=== PATIENT | male | born 1975 | race American Indian/Alaskan Native ===

== ENCOUNTER 2017-08-27 06:42 | Day surgery (SDC) | payer MEDICAID, OTHER ==
[2017-08-27] MEDS ORDERED: Sodium Chloride 0.9% 10 ML Syringe FLUSH PRN (06:45)
[2017-08-27] MEDS ORDERED: Lactated Ringers 1,000 ML IV SCH (06:45)
[2017-08-27 07:27] VITALS: BP 141/97
--- NOTE | 2017-08-27 09:15 | PCM.SN ---
- Free Text/Narrative Note: Due to airway concerns and his past medical hx anesthesia recommends that the case be done in [place]. Referral was made.
== END 2017-08-27 08:08 | disposition home or self-care (01) ==
LOC: FB.SDS 06:42
PROVIDERS: ATTEND Surgery
DX: K42.9 Umbilical hernia without obstruction or gangrene (principal); Z53.8 Procedure and treatment not carried out for other reasons; G47.33 Obstructive sleep apnea (adult) (pediatric); E66.01 Morbid (severe) obesity due to excess calories; Z68.41 Body mass index [BMI] 40.0-44.9, adult; Z88.0 Allergy status to penicillin; Z88.5 Allergy status to narcotic agent

== ENCOUNTER 2017-11-26 04:46 | Emergency (ER) | payer MEDICAID, OTHER ==
[2017-11-26] MEDS ORDERED: levETIRAcetam 500 MG in Sodium Chloride 0.9% 100 ML IV ONE (05:08)
[2017-11-26] MEDS ORDERED: LORazepam 2 MG/ML SDV IVPUSH ONE (05:08)
[2017-11-26] MEDS ORDERED: Insulin Regular, Human 100 Units/ML 3 ML Vial IV ONE ×2 (05:09→07:46)
--- NOTE | 2017-11-26 05:19 | EDM.PDOC ---
ED HPI GENERAL MEDICAL PROBLEM - General Chief Complaint: Neuro Symptoms/Deficits Stated Complaint: PRAVEENA BLOODSUGAR Time Seen by Provider: 11/26/17 05:02 Source of Information: Reports: EMS, Family History Limitations: Reports: Altered Mental Status - History of Present Illness INITIAL COMMENTS - FREE TEXT/NARRATIVE: Per girlfriend, patient had a @2-3 min tonic clonic seizure during intercourse at 0400, then another @1 min seizure at 0430. No prior h/o seizure disorder. She also states that he has been smoking methamphetamine the last few days. He apparently fell 2 nights ago, no loss of consciousness. Per EMS blood sugar @600 , no h/o diabetes. Per girlfriend, he has had polydipsia and polyuria for @1 month. Upon my arrival to the ED, patient is actively seizing. Ativan 1mg IV given. Seizure resolved, lasted @1.5 min - Related Data Allergies Allergy/AdvReac Type Severity Reaction Status Date / Time codeine Allergy Hives Verified 11/26/17 05:41 Penicillins Allergy Hives Verified 11/26/17 05:41 Home Meds: Home Meds . 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 Hematologic History: Reports: None Oncologic (Cancer) History: Reports: None Dermatologic History: Reports: None - Infectious Disease History Infectious Disease History: Reports: Other (See Below) (Epiglottitis 04/2016) - Past Surgical History Head Surgeries/Procedures: Reports: None Respiratory Surgical History: Reports: Tracheostomy GI Surgical History: Reports: Cholecystectomy, Other (See Below) Other GI Surgeries/Procedures: FISSURECTOMY WWO SPHINCTEROTOMY. PEG TUBE INSERTION Social & Family History - Family History Family Medical History: Noncontributory - Tobacco Use Smoking Status *Q: Never Smoker - Caffeine Use Caffeine Use: Reports: Coffee, Energy Drinks, Soda - Alcohol Use Alcohol Use History: No - Recreational Drug Use Recreational Drug Type: Reports: Amphetamines (Speed) ED ROS GENERAL - Review of Systems Review Of Systems: Unable To Obtain (due to ALOC) - Physical Exam Exam: See Below Exam Limited By: Altered Mental Status General Appearance: Other (Initially seizing, now post ictal) Eye Exam: Bilateral Eye: PERRL Ears: Normal External Exam Throat/Mouth: No Airway Compromise Head Exam: Atraumatic, Normocephalic Neck: Normal Inspection Respiratory/Chest: No Respiratory Distress, Lungs Clear, Normal Breath Sounds Cardiovascular: Regular Rate, Rhythm, No Murmur GI/Abdominal: Non-Tender, No Distention Neuro Exam (Abbreviated): No Motor/Sensory Deficits, Other (Obtunded with a GCS 3, rapidly improved to GCS 14) Extremities: Normal Range of Motion Skin Exam: Warm, Dry, Intact, Petechiae (upper chest) EKG INTERPRETATION EKG Date: 11/26/17 Time: 05:45 Rhythm: Other (junctional tachycardia) Rate (Beats/Min): 117 [place]: Normal P-Wave: Absent QRS: Other (Nonspecific intraventricular delay) ST-T: Other (minimal ST dep lateral leads) QT: Prolonged Course - Vital Signs Last Recorded V/S: Last Vital Signs Temp 36.8 C 11/26/17 06:30 Pulse 113 H 11/26/17 04:46 Resp 22 H 11/26/17 07:00 BP 141/89 H 11/26/17 07:00 Pulse Ox 100 11/26/17 06:15 - Orders/Labs/Meds Orders: Active Orders 24 hr Category Date Time Status Accu Check [Blood Glucose Check, Bedside] [RC] Q1HR Care 11/26/17 05:38 Active Hsieh Catheter Insertion [Insert Urinary Catheter] [OM. Care 11/26/17 05:15 Ordered PC] Q24H Urinary Catheter Assessment [RC] QSHIFT Care 11/26/17 05:11 Active C-Spine [Cervical Spine wo Cont] [CT] Stat Exams 11/26/17 05:07 Taken CXR [Chest 1V Frontal] [CR] Stat Exams 11/26/17 05:09 Taken Head wo Cont [CT] Stat Exams 11/26/17 05:07 Taken CULTURE BLOOD [BC] Urgent Lab 11/26/17 06:50 Received CULTURE BLOOD [BC] Urgent Lab 11/26/17 07:00 Received Sodium Chloride 0.9% [Normal Saline] 1,000 ml Med 11/26/17 06:00 Active IV .BOLUS Sodium Chloride 0.9% [Saline Flush] Med 11/26/17 08:21 Active 10 ml FLUSH ASDIRECTED PRN Blood Culture x2 Reflex Set [OM.PC] Urgent Oth 11/26/17 05:06 Ordered EKG 12 Lead [EK] Stat Ther 11/26/17 05:05 Ordered Medication Orders Sodium Chloride (Normal Saline) 1,000 mls @ 999 mls/hr IV .BOLUS SUIS Last Admin: 11/26/17 08:15 Dose: 999 mls/hr Sodium Chloride (Saline Flush) 10 ml FLUSH ASDIRECTED PRN PRN Reason: Keep Vein Open Last Admin: 11/26/17 08:22 Dose: 10 ml Labs: Laboratory Tests 11/26/17 11/26/17 11/26/17 Range/Units 04:50 05:15 05:15 WBC 6.7 (4.5-12.0) X10-3/uL RBC 4.11 L (4.30-5.75) x10(6)uL Hgb 12.7 (11.5-15.5) g/dL Hct 38.0 (30.0-51.3) % MCV 92.4 (80-96) fL MCH 30.9 (27.7-33.6) pg MCHC 33.5 (32.2-35.4) g/dL RDW 13.6 (11.5-15.5) % Plt Count 230 (125-369) X10(3)uL MPV 9.3 (7.4-10.4) fL Neut % (Auto) 51.3 (46-82) % Lymph % (Auto) 34.5 (13-37) % [place] % (Auto) 8.8 (4-12) % Eos % (Auto) 4 (1.0-5.0) % Baso % (Auto) 2 (0-2) % Neut # (Auto) 3.4 (1.6-8.3) # Lymph # (Auto) 2.3 (0.6-5.0) # [place] # (Auto) 0.6 (0.0-1.3) # Eos # (Auto) 0.3 (0.0-0.8) # Baso # (Auto) 0.1 (0.0-0.2) # PT 9.9 (8.7-11.1) INR 1.02 (0.89-1.13) ABG pH (7.35-7.45) ABG pCO2 (35-45) mmHg ABG pO2 (83-108) mmHg ABG HCO3 (22-26) mmol/L ABG O2 Saturation (96-97) % ABG Base Excess (-2-2) [place] Test POC VBG pH (7.31-7.41) POC VBG pCO2 (41-51) mmHG POC VBG HCO3 (23-28) mmol/L POC VBG Total CO2 (24-29) mmol/L POC VBG Base Excess (-2-3) mmol/L O2 Delivery Device Sodium (135-145) mmol/L Potassium (3.5-5.3) mmol/L Chloride (100-110) mmol/L Carbon Dioxide (21-32) mmol/L BUN (7-18) mg/dL Creatinine (0.70-1.30) mg/dL Est Cr Clr Drug Dosing Estimated GFR (MDRD) (>60) BUN/Creatinine Ratio (9-20) Glucose (80-116) mg/dL POC Glucose > 500 H* (80-116) mg/dL Lactic Acid (0.4-2.2) mmol/L Calcium (8.6-10.2) mg/dL Magnesium (1.8-2.5) mg/dL Total Bilirubin (0.1-1.3) mg/dL AST (5-25) IU/L ALT (12-36) U/L Alkaline Phosphatase (56-112) IU/L Troponin I (<0.017-0.056) ng/mL Total Protein (6.0-8.0) g/dL Albumin (3.5-5.2) g/dL Globulin g/dL Albumin/Globulin Ratio Urine Color (YELLOW) Urine Appearance (CLEAR) Urine pH (5.0-6.5) Ur Specific [place] (1.010-1.025) Urine Protein (NEGATIVE) mg/dL Urine Glucose (UA) (NEGATIVE) mg/dL Urine Ketones (NEGATIVE) mg/dL Urine Occult Blood (NEGATIVE) Urine Nitrite (NEGATIVE) Urine Bilirubin (NEGATIVE) Urine Urobilinogen (NEGATIVE) mg/dL Ur Leukocyte Esterase (NEGATIVE) Urine RBC (0) Urine WBC (0) Ur Squamous Epith Cells (NS,R,O) Urine Bacteria (NS) Urine Opiates Screen (NEGATIVE) Ur Oxycodone Screen (NEGATIVE) Ur Propoxyphene Screen (NEGATIVE) Ur Barbituates Screen (NEGATIVE) Ur Tricyclics Screen (NEGATIVE) Ur Phencyclidine Scrn (NEGATIVE) Ur Amphetamine Screen (NEGATIVE) Urine MDMA Screen (NEGATIVE) U Benzodiazepines Scrn (NEGATIVE) U Cocaine Metab Screen (NEGATIVE) U Marijuana (THC) Screen (NEGATIVE) Ethyl Alcohol (<0.03) % 11/26/17 11/26/17 11/26/17 Range/Units 05:15 05:15 05:15 WBC (4.5-12.0) X10-3/uL RBC (4.30-5.75) x10(6)uL Hgb (11.5-15.5) g/dL Hct (30.0-51.3) % MCV (80-96) fL MCH (27.7-33.6) pg MCHC (32.2-35.4) g/dL RDW (11.5-15.5) % Plt Count (125-369) X10(3)uL MPV (7.4-10.4) fL Neut % (Auto) (46-82) % Lymph % (Auto) (13-37) % [place] % (Auto) (4-12) % Eos % (Auto) (1.0-5.0) % Baso % (Auto) (0-2) % Neut # (Auto) (1.6-8.3) # Lymph # (Auto) (0.6-5.0) # [place] # (Auto) (0.0-1.3) # Eos # (Auto) (0.0-0.8) # Baso # (Auto) (0.0-0.2) # PT (8.7-11.1) INR (0.89-1.13) ABG pH (7.35-7.45) ABG pCO2 (35-45) mmHg ABG pO2 (83-108) mmHg ABG HCO3 (22-26) mmol/L ABG O2 Saturation (96-97) % ABG Base Excess (-2-2) [place] Test POC VBG pH (7.31-7.41) POC VBG pCO2 (41-51) mmHG POC VBG HCO3 (23-28) mmol/L POC VBG Total CO2 (24-29) mmol/L POC VBG Base Excess (-2-3) mmol/L O2 Delivery Device Sodium 134 L (135-145) mmol/L Potassium 2.8 L* (3.5-5.3) mmol/L Chloride 98 L (100-110) mmol/L Carbon Dioxide 21 (21-32) mmol/L BUN 4 L (7-18) mg/dL Creatinine 1.2 (0.70-1.30) mg/dL Est Cr Clr Drug Dosing TNP Estimated GFR (MDRD) > 60 (>60) BUN/Creatinine Ratio 3.3 L (9-20) Glucose 631 H* (80-116) mg/dL POC Glucose (80-116) mg/dL Lactic Acid 8.3 H* (0.4-2.2) mmol/L Calcium 8.6 (8.6-10.2) mg/dL Magnesium 1.9 (1.8-2.5) mg/dL Total Bilirubin 0.5 (0.1-1.3) mg/dL AST 21 (5-25) IU/L ALT 20 (12-36) U/L Alkaline Phosphatase 100 (56-112) IU/L Troponin I < 0.017 L (<0.017-0.056) ng/mL Total Protein 6.9 (6.0-8.0) g/dL Albumin 3.4 L (3.5-5.2) g/dL Globulin 3.5 g/dL Albumin/Globulin Ratio 1.0 Urine Color (YELLOW) Urine Appearance (CLEAR) Urine pH (5.0-6.5) Ur Specific [place] (1.010-1.025) Urine Protein (NEGATIVE) mg/dL Urine Glucose (UA) (NEGATIVE) mg/dL Urine Ketones (NEGATIVE) mg/dL Urine Occult Blood (NEGATIVE) Urine Nitrite (NEGATIVE) Urine Bilirubin (NEGATIVE) Urine Urobilinogen (NEGATIVE) mg/dL Ur Leukocyte Esterase (NEGATIVE) Urine RBC (0) Urine WBC (0) Ur Squamous Epith Cells (NS,R,O) Urine Bacteria (NS) Urine Opiates Screen (NEGATIVE) Ur Oxycodone Screen (NEGATIVE) Ur Propoxyphene Screen (NEGATIVE) Ur Barbituates Screen (NEGATIVE) Ur Tricyclics Screen (NEGATIVE) Ur Phencyclidine Scrn (NEGATIVE) Ur Amphetamine Screen (NEGATIVE) Urine MDMA Screen (NEGATIVE) U Benzodiazepines Scrn (NEGATIVE) U Cocaine Metab Screen (NEGATIVE) U Marijuana (THC) Screen (NEGATIVE) Ethyl Alcohol < 0.03 (<0.03) % 11/26/17 11/26/17 11/26/17 Range/Units 05:15 06:32 06:32 WBC (4.5-12.0) X10-3/uL RBC (4.30-5.75) x10(6)uL Hgb (11.5-15.5) g/dL Hct (30.0-51.3) % MCV (80-96) fL MCH (27.7-33.6) pg MCHC (32.2-35.4) g/dL RDW (11.5-15.5) % Plt Count (125-369) X10(3)uL MPV (7.4-10.4) fL Neut % (Auto) (46-82) % Lymph % (Auto) (13-37) % [place] % (Auto) (4-12) % Eos % (Auto) (1.0-5.0) % Baso % (Auto) (0-2) % Neut # (Auto) (1.6-8.3) # Lymph # (Auto) (0.6-5.0) # [place] # (Auto) (0.0-1.3) # Eos # (Auto) (0.0-0.8) # Baso # (Auto) (0.0-0.2) # PT (8.7-11.1) INR (0.89-1.13) ABG pH (7.35-7.45) ABG pCO2 (35-45) mmHg ABG pO2 (83-108) mmHg ABG HCO3 (22-26) mmol/L ABG O2 Saturation (96-97) % ABG Base Excess (-2-2) [place] Test POC VBG pH 7.23 L (7.31-7.41) POC VBG pCO2 44.3 (41-51) mmHG POC VBG HCO3 18.5 L (23-28) mmol/L POC VBG Total CO2 20 L (24-29) mmol/L POC VBG Base Excess -9 L (-2-3) mmol/L O2 Delivery Device Sodium (135-145) mmol/L Potassium (3.5-5.3) mmol/L Chloride (100-110) mmol/L Carbon Dioxide (21-32) mmol/L BUN (7-18) mg/dL Creatinine (0.70-1.30) mg/dL Est Cr Clr Drug Dosing Estimated GFR (MDRD) (>60) BUN/Creatinine Ratio (9-20) Glucose (80-116) mg/dL POC Glucose (80-116) mg/dL Lactic Acid (0.4-2.2) mmol/L Calcium (8.6-10.2) mg/dL Magnesium (1.8-2.5) mg/dL Total Bilirubin (0.1-1.3) mg/dL AST (5-25) IU/L ALT (12-36) U/L Alkaline Phosphatase (56-112) IU/L Troponin I (<0.017-0.056) ng/mL Total Protein (6.0-8.0) g/dL Albumin (3.5-5.2) g/dL Globulin g/dL Albumin/Globulin Ratio Urine Color Yellow (YELLOW) Urine Appearance Clear (CLEAR) Urine pH 6.0 (5.0-6.5) Ur Specific [place] 1.005 L (1.010-1.025) Urine Protein Negative (NEGATIVE) mg/dL Urine Glucose (UA) >1000 H (NEGATIVE) mg/dL Urine Ketones Negative (NEGATIVE) mg/dL Urine Occult Blood Negative (NEGATIVE) Urine Nitrite Negative (NEGATIVE) Urine Bilirubin Negative (NEGATIVE) Urine Urobilinogen Normal (NEGATIVE) mg/dL Ur Leukocyte Esterase Negative (NEGATIVE) Urine RBC 0-5 (0) Urine WBC 0-5 (0) Ur Squamous Epith Cells Rare (NS,R,O) Urine Bacteria Rare H (NS) Urine Opiates Screen Negative (NEGATIVE) Ur Oxycodone Screen Negative (NEGATIVE) Ur Propoxyphene Screen Negative (NEGATIVE) Ur Barbituates Screen Negative (NEGATIVE) Ur Tricyclics Screen Negative (NEGATIVE) Ur Phencyclidine Scrn Negative (NEGATIVE) Ur Amphetamine Screen Positive H (NEGATIVE) Urine MDMA Screen Negative (NEGATIVE) U Benzodiazepines Scrn Negative (NEGATIVE) U Cocaine Metab Screen Negative (NEGATIVE) U Marijuana (THC) Screen Positive H (NEGATIVE) Ethyl Alcohol (<0.03) % 11/26/17 11/26/17 11/26/17 Range/Units 06:34 06:50 07:25 WBC (4.5-12.0) X10-3/uL RBC (4.30-5.75) x10(6)uL Hgb (11.5-15.5) g/dL Hct (30.0-51.3) % MCV (80-96) fL MCH (27.7-33.6) pg MCHC (32.2-35.4) g/dL RDW (11.5-15.5) % Plt Count (125-369) X10(3)uL MPV (7.4-10.4) fL Neut % (Auto) (46-82) % Lymph % (Auto) (13-37) % [place] % (Auto) (4-12) % Eos % (Auto) (1.0-5.0) % Baso % (Auto) (0-2) % Neut # (Auto) (1.6-8.3) # Lymph # (Auto) (0.6-5.0) # [place] # (Auto) (0.0-1.3) # Eos # (Auto) (0.0-0.8) # Baso # (Auto) (0.0-0.2) # PT (8.7-11.1) INR (0.89-1.13) ABG pH 7.40 (7.35-7.45) ABG pCO2 38 (35-45) mmHg ABG pO2 76 L (83-108) mmHg ABG HCO3 23 (22-26) mmol/L ABG O2 Saturation 95 L (96-97) % ABG Base Excess -0.7 (-2-2) [place] Test Not performed POC VBG pH (7.31-7.41) POC VBG pCO2 (41-51) mmHG POC VBG HCO3 (23-28) mmol/L POC VBG Total CO2 (24-29) mmol/L POC VBG Base Excess (-2-3) mmol/L O2 Delivery Device Nasal cannula Sodium (135-145) mmol/L Potassium 3.1 L (3.5-5.3) mmol/L Chloride (100-110) mmol/L Carbon Dioxide (21-32) mmol/L BUN (7-18) mg/dL Creatinine (0.70-1.30) mg/dL Est Cr Clr Drug Dosing Estimated GFR (MDRD) (>60) BUN/Creatinine Ratio (9-20) Glucose (80-116) mg/dL POC Glucose 347 H D (80-116) mg/dL Lactic Acid (0.4-2.2) mmol/L Calcium (8.6-10.2) mg/dL Magnesium (1.8-2.5) mg/dL Total Bilirubin (0.1-1.3) mg/dL AST (5-25) IU/L ALT (12-36) U/L Alkaline Phosphatase (56-112) IU/L Troponin I (<0.017-0.056) ng/mL Total Protein (6.0-8.0) g/dL Albumin (3.5-5.2) g/dL Globulin g/dL Albumin/Globulin Ratio Urine Color (YELLOW) Urine Appearance (CLEAR) Urine pH (5.0-6.5) Ur Specific [place] (1.010-1.025) Urine Protein (NEGATIVE) mg/dL Urine Glucose (UA) (NEGATIVE) mg/dL Urine Ketones (NEGATIVE) mg/dL Urine Occult Blood (NEGATIVE) Urine Nitrite (NEGATIVE) Urine Bilirubin (NEGATIVE) Urine Urobilinogen (NEGATIVE) mg/dL Ur Leukocyte Esterase (NEGATIVE) Urine RBC (0) Urine WBC (0) Ur Squamous Epith Cells (NS,R,O) Urine Bacteria (NS) Urine Opiates Screen (NEGATIVE) Ur Oxycodone Screen (NEGATIVE) Ur Propoxyphene Screen (NEGATIVE) Ur Barbituates Screen (NEGATIVE) Ur Tricyclics Screen (NEGATIVE) Ur Phencyclidine Scrn (NEGATIVE) Ur Amphetamine Screen (NEGATIVE) Urine MDMA Screen (NEGATIVE) U Benzodiazepines Scrn (NEGATIVE) U Cocaine Metab Screen (NEGATIVE) U Marijuana (THC) Screen (NEGATIVE) Ethyl Alcohol (<0.03) % 11/26/17 11/26/17 11/26/17 Range/Units 07:34 07:40 08:35 WBC (4.5-12.0) X10-3/uL RBC (4.30-5.75) x10(6)uL Hgb (11.5-15.5) g/dL Hct (30.0-51.3) % MCV (80-96) fL MCH (27.7-33.6) pg MCHC (32.2-35.4) g/dL RDW (11.5-15.5) % Plt Count (125-369) X10(3)uL MPV (7.4-10.4) fL Neut % (Auto) (46-82) % Lymph % (Auto) (13-37) % [place] % (Auto) (4-12) % Eos % (Auto) (1.0-5.0) % Baso % (Auto) (0-2) % Neut # (Auto) (1.6-8.3) # Lymph # (Auto) (0.6-5.0) # [place] # (Auto) (0.0-1.3) # Eos # (Auto) (0.0-0.8) # Baso # (Auto) (0.0-0.2) # PT (8.7-11.1) INR (0.89-1.13) ABG pH (7.35-7.45) ABG pCO2 (35-45) mmHg ABG pO2 (83-108) mmHg ABG HCO3 (22-26) mmol/L ABG O2 Saturation (96-97) % ABG Base Excess (-2-2) [place] Test POC VBG pH (7.31-7.41) POC VBG pCO2 (41-51) mmHG POC VBG HCO3 (23-28) mmol/L POC VBG Total CO2 (24-29) mmol/L POC VBG Base Excess (-2-3) mmol/L O2 Delivery Device Sodium (135-145) mmol/L Potassium (3.5-5.3) mmol/L Chloride (100-110) mmol/L Carbon Dioxide (21-32) mmol/L BUN (7-18) mg/dL Creatinine (0.70-1.30) mg/dL Est Cr Clr Drug Dosing Estimated GFR (MDRD) (>60) BUN/Creatinine Ratio (9-20) Glucose (80-116) mg/dL POC Glucose 329 H 224 H D (80-116) mg/dL Lactic Acid 1.1 (0.4-2.2) mmol/L Calcium (8.6-10.2) mg/dL Magnesium (1.8-2.5) mg/dL Total Bilirubin (0.1-1.3) mg/dL AST (5-25) IU/L ALT (12-36) U/L Alkaline Phosphatase (56-112) IU/L Troponin I (<0.017-0.056) ng/mL Total Protein (6.0-8.0) g/dL Albumin (3.5-5.2) g/dL Globulin g/dL Albumin/Globulin Ratio Urine Color (YELLOW) Urine Appearance (CLEAR) Urine pH (5.0-6.5) Ur Specific [place] (1.010-1.025) Urine Protein (NEGATIVE) mg/dL Urine Glucose (UA) (NEGATIVE) mg/dL Urine Ketones (NEGATIVE) mg/dL Urine Occult Blood (NEGATIVE) Urine Nitrite (NEGATIVE) Urine Bilirubin (NEGATIVE) Urine Urobilinogen (NEGATIVE) mg/dL Ur Leukocyte Esterase (NEGATIVE) Urine RBC (0) Urine WBC (0) Ur Squamous Epith Cells (NS,R,O) Urine Bacteria (NS) Urine Opiates Screen (NEGATIVE) Ur Oxycodone Screen (NEGATIVE) Ur Propoxyphene Screen (NEGATIVE) Ur Barbituates Screen (NEGATIVE) Ur Tricyclics Screen (NEGATIVE) Ur Phencyclidine Scrn (NEGATIVE) Ur Amphetamine Screen (NEGATIVE) Urine MDMA Screen (NEGATIVE) U Benzodiazepines Scrn (NEGATIVE) U Cocaine Metab Screen (NEGATIVE) U Marijuana (THC) Screen (NEGATIVE) Ethyl Alcohol (<0.03) % Meds: Medications Generic Name Dose Route Start Last Admin Trade Name Freq PRN Reason Stop Dose Admin Sodium Chloride 1,000 mls @ 999 mls/hr 11/26/17 06:00 11/26/17 08:15 Normal Saline IV 999 mls/hr .BOLUS SUSI Administration Sodium Chloride 10 ml 11/26/17 08:21 11/26/17 08:22 Saline Flush FLUSH 10 ml ASDIRECTED PRN Administration Keep Vein Open Discontinued Medications Generic Name Dose Route Start Last Admin Trade Name Freq PRN Reason Stop Dose Admin Levetiracetam 500 mg/ Sodium 105 mls @ 400 mls/hr 11/26/17 05:08 11/26/17 05: 14 Chloride IV 11/26/17 05:22 400 mls/hr ONETIME ONE Administration Sodium Chloride 1,000 mls @ 999 mls/hr 11/26/17 05:10 11/26/17 06:35 Normal Saline IV 11/26/17 06:10 999 mls/hr .BOLUS ONE Administration Potassium Chloride 20 meq/ 100 mls @ 50 mls/hr 11/26/17 05:44 11/26/17 05:56 Premix IV 11/26/17 07:43 50 mls/hr ONETIME ONE Administration Levofloxacin/Dextrose 750 mg/ 150 mls @ 100 mls/hr 11/26/17 06:01 11/26/17 07 :42 Premix IV 11/26/17 07:30 100 mls/hr ONETIME ONE Administration Vancomycin HCl 1,000 mg/ 250 mls @ 167 mls/hr 11/26/17 06:01 Sodium Chloride IV 11/26/17 07:30 ONETIME ONE Insulin Human Regular 100 unit 100 mls @ 11.86 mls/hr 11/26/17 06:30 / Sodium Chloride IV TITRATE SUSI Protocol 0.1 UNITS/KG/HR Insulin Human Regular 10 unit 11/26/17 05:09 11/26/17 05:20 Humulin R IV 11/26/17 05:10 10 unit ONETIME ONE Administration Insulin Human Regular 5 unit 11/26/17 07:46 11/26/17 07:55 Humulin R IV 11/26/17 07:47 5 unit ONETIME ONE Administration Insulin Human Regular 5 unit 11/26/17 07:47 11/26/17 07:56 Humulin R SUBCUT 11/26/17 07:48 5 units ONETIME ONE Administration Lorazepam 1 mg 11/26/17 05:08 11/26/17 05:00 Ativan IVPUSH 11/26/17 05:09 1 mg ONETIME ONE Administration - Radiology Interpretation Free Text/Narrative:: CT Head: NAD CT C-spine: NAD CXR: NAD - Re-Assessments/Exams Free Text/Narrative Re-Assessment/Exam: 11/26/17 08:47 BP 133/98, HR 109, Sa02 95% 2L 02. GCS stable at 14, patient somnolent, but easily arousable. No further seizure activity in the ED. Lactate normalized after IVF. K improved to 3.1. Blood sugar 224 after Insulin 15 unit IV and [address] Hall accepts patient for transfer to [facility]. Departure - Departure Time of Disposition: 08:51 Disposition: DC/Tfer to Acute Hospital 02 Condition: Serious Clinical Impression: New onset seizure, Hyperglycemia - Discharge Information *PRESCRIPTION DRUG MONITORING PROGRAM REVIEWED*: No *COPY OF PRESCRIPTION DRUG MONITORING REPORT IN PATIENT EVA: Not Applicable Referrals: PCP,None [Primary Care Provider] - Forms: ED Department Discharge - My Orders Last 24 Hours: My Active Orders 11/26/17 05:05 EKG 12 Lead [EK] Stat 11/26/17 05:06 Blood Culture x2 Reflex Set [OM.PC] Urgent 11/26/17 05:07 C-Spine [Cervical Spine wo Cont] [CT] Stat Head wo Cont [CT] Stat 11/26/17 05:09 CXR [Chest 1V Frontal] [CR] Stat 11/26/17 05:11 Urinary Catheter Assessment [RC] QSHIFT 11/26/17 05:15 Hsieh Catheter Insertion [Insert Urinary Catheter] [OM.PC] Q24H 11/26/17 05:38 Accu Check [Blood Glucose Check, Bedside] [RC] Q1HR 11/26/17 06:00 Sodium Chloride 0.9% [Normal Saline] 1,000 ml IV .BOLUS 11/26/17 06:50 CULTURE BLOOD [BC] Urgent 11/26/17 07:00 CULTURE BLOOD [BC] Urgent 11/26/17 08:21 Sodium Chloride 0.9% [Saline Flush] 10 ml FLUSH ASDIRECTED PRN - Assessment/Plan Last 24 Hours: My Active Orders 11/26/17 05:05 EKG 12 Lead [EK] Stat 11/26/17 05:06 Blood Culture x2 Reflex Set [OM.PC] Urgent 11/26/17 05:07 C-Spine [Cervical Spine wo Cont] [CT] Stat Head wo Cont [CT] Stat 11/26/17 05:09 CXR [Chest 1V Frontal] [CR] Stat 11/26/17 05:11 Urinary Catheter Assessment [RC] QSHIFT 11/26/17 05:15 Hsieh Catheter Insertion [Insert Urinary Catheter] [OM.PC] Q24H 11/26/17 05:38 Accu Check [Blood Glucose Check, Bedside] [RC] Q1HR 11/26/17 06:00 Sodium Chloride 0.9% [Normal Saline] 1,000 ml IV .BOLUS 11/26/17 06:50 CULTURE BLOOD [BC] Urgent 11/26/17 07:00 CULTURE BLOOD [BC] Urgent 11/26/17 08:21 Sodium Chloride 0.9% [Saline Flush] 10 ml FLUSH ASDIRECTED PRN
[2017-11-26] MEDS: Sodium Chloride 0.9% 1,000 ML IV ONE ×2 (05:30→06:35)
[2017-11-26] MEDS ORDERED: Potassium Chloride 20 MEQ in Premix Bag 1 BAG IV ONE (05:44)
[2017-11-26] MEDS ORDERED: Levofloxacin/Dextrose 5%-Water 750 MG in Premix Bag 1 BAG IV ONE (06:01)
[2017-11-26] MEDS ORDERED: Insulin Regular, Human 100 Units/ML 3 ML Vial SUBCUT ONE (07:47)
[2017-11-26] MEDS: Sodium Chloride 0.9% 1,000 ML IV SCH ×3 (08:15→17:25)
[2017-11-26 08:20] VITALS: BP 141/89
[2017-11-26] MEDS ORDERED: Sodium Chloride 0.9% 10 ML Syringe FLUSH PRN (08:21)
[2017-11-26] MEDS ORDERED: LORazepam 2 MG/ML SDV ONE (08:44)
--- NOTE | 2017-11-26 09:31 | CR ---
INDICATION: Hyperglycemia. CHEST, AP PORTABLE VIEW: FINDINGS: The patient is of larger body habitus. There is prominent mediastinal fat superiorly. There are prominent fat pads adjacent to the right and left heart borders. At the current time, the lungs are clear. There is no CHF. Heart size is mildly enlarged, although I think enlarged heart is accentuated by the patient s larger body habitus. IMPRESSION: No CHF or pneumonia. MTDD
== END 2017-11-26 10:00 ==
LOC: FB.ED 04:46
DX: G40.409 Other generalized epilepsy and epileptic syndromes, not intractable, without status epilepticus (principal); R73.9 Hyperglycemia, unspecified; Z88.5 Allergy status to narcotic agent
CPT/HCPCS: 36415; 36600; 51702; 70450; 71045; 72125; 80053; 80305-QW; 81001; 82803; 82962; 83605; 83735; 84132; 84484; 85025; 85610; 87040; 93005; 96361; 96365; 96366; 96367; 96372; 96375; 96376; 99285; G0480; J1815-GY; J1953; J1956; J2060; J3480; J7030; J7050

== ENCOUNTER 2017-12-03 20:27 | Emergency (ER) | payer MEDICAID, OTHER ==
[2017-12-03] MEDS ORDERED: Insulin Regular, Human 100 Units/ML 3 ML Vial IV ONE (21:31)
--- NOTE | 2017-12-03 21:42 | EDM.PDOC ---
ED HPI GENERAL MEDICAL PROBLEM - General Chief Complaint: General Stated Complaint: HIGH BLOOD SUGAR Time Seen by Provider: 12/03/17 20:50 Source of Information: Reports: Patient History Limitations: Reports: No Limitations - History of Present Illness INITIAL COMMENTS - FREE TEXT/NARRATIVE: Gentleman recently diagnosed diabetes mellitus, coming in today blood glucose is elevated. Patient was actually seen for similar concerns and was placed on metformin got home check blood glucose and it is elevated again and he wants to be assessed. Patient is denying any acute complaints otherwise at this time - Related Data Allergies Allergy/AdvReac Type Severity Reaction Status Date / Time codeine Allergy Hives Verified 11/26/17 05:41 Penicillins Allergy Hives Verified 11/26/17 05:41 Home Meds: Home Meds . [Unable to Verify Home Med List] 11/26/17 [History] Past Medical History HEENT History: Reports: None Cardiovascular History: Reports: None Respiratory History: Reports: Asthma, Sleep Apnea Genitourinary History: Reports: None [employer] History: Reports: None Neurological History: Reports: None Psychiatric History: Reports: Depression Endocrine/Metabolic History: Reports: Obesity/BMI 30+, Other (See Below) Other Endocrine/Metabolic History: states that he is a borderline diabetic but was never diagnosed having diabetes. Hematologic History: Reports: None Oncologic (Cancer) History: Reports: None Dermatologic History: Reports: None - Infectious Disease History Infectious Disease History: Reports: Other (See Below) (Epiglottitis 04/2016) - Past Surgical History Head Surgeries/Procedures: Reports: None Respiratory Surgical History: Reports: Tracheostomy GI Surgical History: Reports: Cholecystectomy, Other (See Below) Other GI Surgeries/Procedures: FISSURECTOMY WWO SPHINCTEROTOMY. PEG TUBE INSERTION Social & Family History - Family History Family Medical History: Noncontributory - Caffeine Use Caffeine Use: Reports: Coffee, Energy Drinks, Soda ED ROS GENERAL - Review of Systems Review Of Systems: See Below Respiratory: Denies: Shortness of Breath, Wheezing Cardiovascular: Denies: Chest Pain, Blood Pressure Problem GI/Abdominal: Denies: Abdominal Pain, Nausea, Vomiting ED EXAM, GENERAL - Physical Exam Exam: See Below Exam Limited By: No Limitations General Appearance: Alert, No Apparent Distress. No: Anxious Head: Atraumatic, Normocephalic Respiratory/Chest: No Respiratory Distress, Lungs Clear, Normal Breath Sounds Cardiovascular: Regular Rate, Rhythm Neurological: Alert, Oriented, Normal Cognition Course - Vital Signs Text/Narrative:: Patient's seen by me for elevated blood glucose. No nausea no vomiting no diarrhea. Patient is not dehydrated. Calculated anion gap of 14 Bicarbonate 24 Patient hydrated with IV insulin blood glucose down to 174. I encouraged him to continue his metformin I encouraged him of the need to see primary care tomorrow to have a discussion about initiating another from oral hypoglycemic or insulin. Patient to return with active complaints Last Recorded V/S: Last Vital Signs Temp 36.6 C 12/03/17 20:35 Pulse 93 12/03/17 20:35 Resp 18 12/03/17 20:35 BP 111/66 12/03/17 20:35 Pulse Ox 100 12/03/17 20:35 - Orders/Labs/Meds Labs: Laboratory Tests 12/03/17 12/03/17 12/03/17 Range/Units 20:34 20:50 21:00 Sodium 132 L (135-145) mmol/L Potassium 4.0 (3.5-5.3) mmol/L Chloride 95 L (100-110) mmol/L Carbon Dioxide 24 (21-32) mmol/L BUN 10 (7-18) mg/dL Creatinine 1.1 (0.70-1.30) mg/dL Est Cr Clr Drug Dosing TNP Estimated GFR (MDRD) > 60 (>60) BUN/Creatinine Ratio 9.1 (9-20) Glucose 555 H* (80-116) mg/dL POC Glucose > 500 H* D (80-116) mg/dL Calcium 8.8 (8.6-10.2) mg/dL Total Bilirubin 0.3 (0.1-1.3) mg/dL AST 12 D (5-25) IU/L ALT 31 D (12-36) U/L Alkaline Phosphatase 92 (56-112) IU/L Total Protein 7.1 (6.0-8.0) g/dL Albumin 3.3 L (3.5-5.2) g/dL Globulin 3.8 g/dL Albumin/Globulin Ratio 0.9 Urine Color Yellow (YELLOW) Urine Appearance Clear (CLEAR) Urine pH 5.0 (5.0-6.5) Ur Specific [place] 1.010 (1.010-1.025) Urine Protein Negative (NEGATIVE) mg/dL Urine Glucose (UA) >1000 H (NEGATIVE) mg/dL Urine Ketones Negative (NEGATIVE) mg/dL Urine Occult Blood Negative (NEGATIVE) Urine Nitrite Negative (NEGATIVE) Urine Bilirubin Negative (NEGATIVE) Urine Urobilinogen Normal (NEGATIVE) mg/dL Ur Leukocyte Esterase Negative (NEGATIVE) Urine RBC Not seen (0) Urine WBC 0-5 (0) Ur Squamous Epith Cells Rare (NS,R,O) Urine Bacteria Rare H (NS) 12/03/17 Range/Units 23:03 Sodium (135-145) mmol/L Potassium (3.5-5.3) mmol/L Chloride (100-110) mmol/L Carbon Dioxide (21-32) mmol/L BUN (7-18) mg/dL Creatinine (0.70-1.30) mg/dL Est Cr Clr Drug Dosing Estimated GFR (MDRD) (>60) BUN/Creatinine Ratio (9-20) Glucose (80-116) mg/dL POC Glucose 172 H D (80-116) mg/dL Calcium (8.6-10.2) mg/dL Total Bilirubin (0.1-1.3) mg/dL AST (5-25) IU/L ALT (12-36) U/L Alkaline Phosphatase (56-112) IU/L Total Protein (6.0-8.0) g/dL Albumin (3.5-5.2) g/dL Globulin g/dL Albumin/Globulin Ratio Urine Color (YELLOW) Urine Appearance (CLEAR) Urine pH (5.0-6.5) Ur Specific [place] (1.010-1.025) Urine Protein (NEGATIVE) mg/dL Urine Glucose (UA) (NEGATIVE) mg/dL Urine Ketones (NEGATIVE) mg/dL Urine Occult Blood (NEGATIVE) Urine Nitrite (NEGATIVE) Urine Bilirubin (NEGATIVE) Urine Urobilinogen (NEGATIVE) mg/dL Ur Leukocyte Esterase (NEGATIVE) Urine RBC (0) Urine WBC (0) Ur Squamous Epith Cells (NS,R,O) Urine Bacteria (NS) Meds: Medications Discontinued Medications Generic Name Dose Route Start Last Admin Trade Name Freq PRN Reason Stop Dose Admin Sodium Chloride 1,000 mls @ 999 mls/hr 12/03/17 22:00 12/03/17 22:05 Normal Saline IV 12/03/17 23:00 999 mls/hr .BOLUS ONE Administration Insulin Human Regular 10 unit 12/03/17 21:31 12/03/17 21:55 Humulin R IV 12/03/17 21:32 10 units ONETIME ONE Administration Departure - Departure Time of Disposition: 23:24 Disposition: Home, Self-Care 01 Clinical Impression: Hyperglycemia Diabetes mellitus Qualifiers: Diabetes mellitus type: type 2 Diabetes mellitus senior living insulin use: without terminal worker use Diabetes mellitus complication status: with hyperglycemia Qualified Code(s): E11.65 - Type 2 diabetes mellitus with hyperglycemia - Discharge Information *PRESCRIPTION DRUG MONITORING PROGRAM REVIEWED*: Not Applicable *COPY OF PRESCRIPTION DRUG MONITORING REPORT IN PATIENT EVA: Not Applicable Instructions: Hyperglycemia, Type 2 Diabetes Mellitus, Diagnosis, Adult Referrals: Sebastien Mata MD [Primary Care Provider] - Forms: ED Department Discharge Additional Instructions: It is important to stay well-hydrated. Please go and see primary care physician tomorrow and discuss the need for possible insulin therapy
[2017-12-03] MEDS ORDERED: Sodium Chloride 0.9% 1,000 ML IV ONE (22:00)
[2017-12-04 08:48] VITALS: BP 114/56
== END 2017-12-03 23:40 | disposition home or self-care (01) ==
LOC: FB.ED 20:27
DX: E11.65 Type 2 diabetes mellitus with hyperglycemia (principal); E66.9 Obesity, unspecified; Z88.5 Allergy status to narcotic agent; Z88.0 Allergy status to penicillin
CPT/HCPCS: 36415; 80053; 81001; 82962; 96360; 99283; J1815-GY; J7030

== ENCOUNTER 2024-09-29 11:20 | Emergency (ER) | payer MEDICAID ==
[2024-09-29 12:17] LABS: BASOPHILS ABSOLUTE AUTO 0.1 x10-3/uL (0.0-0.3); BASOPHILS PERCENT AUTO 1.1 % (0.3-3.8); EOSINOPHILS ABSOLUTE AUTO 0.2 x10-3/uL (0.0-0.6); EOSINOPHILS PERCENT AUTO 3.4 % (0.1-6.8); LYMPHOCYTES ABSOLUTE AUTO 1.5 x10-3/uL (0.5-4.5); LYMPHOCYTES PERCENT AUTO 21.5 % (15.8-45.3); MEAN PLATELET VOLUME 8.1 fL (6.7-11.0); MONOCYTES ABSOLUTE AUTO 0.7 x10-3/uL (0.0-1.2); MONOCYTES PERCENT AUTO 10.3 % (5.5-15.2); NEUTROPHILS ABSOLUTE AUTO 4.4 x10-3/uL (1.7-6.9); NEUTROPHILS PERCENT AUTO 63.7 % (40.3-71.8); PLATELET COUNT,PLT 270 x10(3)uL (117-477); RED BLOOD CELL COUNT 4.84 x10(6)uL (3.90-5.90); RED CELL DISTRIBUTION WIDTH 12.9 % (12.4-15.0); WHITE BLOOD CELL COUNT,WBC 7.0 x10-3/uL (3.2-10.1)
[2024-09-29 12:25] LABS: BLOOD UREA NITROGEN,BUN 17 mg/dL (7-18); CARBON DIOXIDE,CO2 31 mmol/L (21-32); CHLORIDE,CL 105 mmol/L (100-110); CREATININE 0.9 mg/dL (0.70-1.30); EST CRCL DRUG DOSING (CG) 108.07 mL/min; ESTIMATED GFR 106 mL/min (>60); GLUCOSE RANDOM 98 mg/dL (80-116); POTASSIUM,K 3.9 mmol/L (3.5-5.3); SODIUM,NA 141 mmol/L (135-145)
[2024-09-29 12:30] LABS: A/G RATIO 1.1; ALANINE AMINOTRANSFERASE,ALT 67 U/L (12-36); ASPARTATE AMNIOTRANSFERASE,AST 109 IU/L (5-25); BILIRUBIN TOTAL 0.5 mg/dL (0.1-1.3); PROTEIN TOTAL,TP 6.8 g/dL (6.0-8.0)
[2024-09-29 12:35] LABS: GLUCOSE,URINE NORMAL (NORMAL); OCCULT BLOOD,URINE NEGATIVE (NEGATIVE)
[2024-09-29 12:36] LABS: APPEARANCE,URINE CLEAR (CLEAR)
[2024-09-29 12:44] LABS: AMPHETAMINES SCREEN, URINE POSITIVE (NEGATIVE); BUPRENORPHINE SCREEN,URINE NEGATIVE (NEGATIVE); METHADONE SCREEN, URINE NEGATIVE (NEGATIVE); METHAMPHETAMINE SCREEN, URINE POSITIVE (NEGATIVE); OXYCODONE SCREEN,URINE NEGATIVE (NEGATIVE)
[2024-09-29 14:14] VITALS: BP 124/68; PULSE 68
== END 2024-09-29 14:09 | disposition home or self-care (01) ==
LOC: FB.ED 11:20
DX: S01.01XA Laceration without foreign body of scalp, initial encounter (principal); G40.909 Epilepsy, unspecified, not intractable, without status epilepticus; F15.10 Other stimulant abuse, uncomplicated; F17.290 Nicotine dependence, other tobacco product, uncomplicated; Z88.5 Allergy status to narcotic agent; Z88.0 Allergy status to penicillin; Z79.84 Long term (current) use of oral hypoglycemic drugs; Z79.899 Other long term (current) drug therapy; W01.198A Fall on same level from slipping, tripping and stumbling with subsequent striking against other object, initial encounter; Y93.89 Activity, other specified
CPT/HCPCS: 36415; 70450; 72125; 80053; 80307; 81003; 83735; 85025; 99284

== ENCOUNTER 2024-10-19 11:41 | Emergency (ER) | payer MEDICAID ==
[2024-10-19 12:23] LABS: BASOPHILS ABSOLUTE AUTO 0.0 x10-3/uL (0.0-0.3); BASOPHILS PERCENT AUTO 0.7 % (0.3-3.8); EOSINOPHILS ABSOLUTE AUTO 0.2 x10-3/uL (0.0-0.6); EOSINOPHILS PERCENT AUTO 2.8 % (0.1-6.8); LYMPHOCYTES ABSOLUTE AUTO 1.0 x10-3/uL (0.5-4.5); LYMPHOCYTES PERCENT AUTO 17.8 % (15.8-45.3); MEAN PLATELET VOLUME 7.6 fL (6.7-11.0); MONOCYTES ABSOLUTE AUTO 0.7 x10-3/uL (0.0-1.2); MONOCYTES PERCENT AUTO 11.6 % (5.5-15.2); NEUTROPHILS ABSOLUTE AUTO 3.9 x10-3/uL (1.7-6.9); NEUTROPHILS PERCENT AUTO 67.1 % (40.3-71.8); PLATELET COUNT,PLT 263 x10(3)uL (117-477); RED BLOOD CELL COUNT 5.53 x10(6)uL (3.90-5.90); RED CELL DISTRIBUTION WIDTH 13.7 % (12.4-15.0); WHITE BLOOD CELL COUNT,WBC 5.8 x10-3/uL (3.2-10.1)
[2024-10-19 12:27] LABS: BLOOD UREA NITROGEN,BUN 12 mg/dL (7-18); CARBON DIOXIDE,CO2 33 mmol/L (21-32); CHLORIDE,CL 106 mmol/L (100-110); CREATININE 0.8 mg/dL (0.70-1.30); EST CRCL DRUG DOSING (CG) 121.58 mL/min; ESTIMATED GFR 110 mL/min (>60); GLUCOSE RANDOM 113 mg/dL (80-116); POTASSIUM,K 4.1 mmol/L (3.5-5.3); SODIUM,NA 142 mmol/L (135-145)
[2024-10-19 12:39] LABS: A/G RATIO 1.1; ALANINE AMINOTRANSFERASE,ALT 76 U/L (12-36); ASPARTATE AMNIOTRANSFERASE,AST 44 IU/L (5-25); BILIRUBIN TOTAL 0.4 mg/dL (0.1-1.3); PROTEIN TOTAL,TP 7.6 g/dL (6.0-8.0)
[2024-10-19 12:58] VITALS: BP 154/110; PULSE 85
== END 2024-10-19 12:54 | disposition home or self-care (01) ==
LOC: FB.ED 11:41
DX: R41.89 Other symptoms and signs involving cognitive functions and awareness (principal); F15.10 Other stimulant abuse, uncomplicated; G40.909 Epilepsy, unspecified, not intractable, without status epilepticus; J45.909 Unspecified asthma, uncomplicated; S06.9XAS Unspecified intracranial injury with loss of consciousness status unknown, sequela; E11.9 Type 2 diabetes mellitus without complications; E66.9 Obesity, unspecified; Z68.31 Body mass index [BMI] 31.0-31.9, adult; F17.200 Nicotine dependence, unspecified, uncomplicated; Z90.49 Acquired absence of other specified parts of digestive tract; Z88.5 Allergy status to narcotic agent; Z88.0 Allergy status to penicillin; Z79.84 Long term (current) use of oral hypoglycemic drugs; Z79.899 Other long term (current) drug therapy
CPT/HCPCS: 36415; 70450; 80053; 85025; 99284